=== PATIENT | female | born 1995 | race Caucasian/White ===

== ENCOUNTER 2018-11-23 07:45 | Outpatient (CLI) | payer MEDICAID ==
--- NOTE | 2018-11-23 08:47 | ULT ---
LEFT BREAST ULTRASOUND: Comparison: None. History: Palpable mass at the 2 o'clock position of the left breast. Technique: Multiplanar grayscale and color doppler images were obtained in a left breast ultrasound. FINDINGS: Normal appearing breast parenchyma is seen at the area of palpable abnormality. No cyst is identified . No suspicious mass or shadowing is seen. IMPRESSION: BIRADS category 1 - negative. Annual screening mammography is recommended at the age of 40. POS: [facility]
== END 2018-11-23 07:46 | disposition home or self-care (01) ==
LOC: BICULT 07:45
PROVIDERS: ATTEND Family Medicine
DX: N60.02 Solitary cyst of left breast (principal)